=== PATIENT | female | born 1945 | race Caucasian/White ===

== ENCOUNTER 2024-10-27 10:47 | Emergency (ER) | payer BC, OTHER ==
[~2024-10-27] VITALS: Ht 160 cm; Wt 58.1 kg
[2024-10-27] MEDS ORDERED: LOSA25TA27 PO (11:04)
[2024-10-27] MEDS ORDERED: LOSA50TA39 PO (11:04)
[2024-10-27] MEDS ORDERED: MULT-1045 PO (11:08)
[2024-10-27] MEDS ORDERED: CHOL10005 PO (11:08)
[2024-10-27] MEDS ORDERED: MAGN400C PO (11:08)
[2024-10-27] MEDS: LIDOCAINE HCL 1% 20 ML VIAL IJ ONE (12:07)
[2024-10-27] MEDS ORDERED: TDAP DIPH,PERTUSS,TET VAC/PF 0.5 ML DISP.SYRIN IM ONE (12:08)
[2024-10-27] MEDS ORDERED: IBUP-1955 PO (12:08)
[2024-10-27] MEDS ORDERED: NEOMY/BACITRA/POLYMYXIN B OINT UD PACKET TP ONE (12:08)
[2024-10-27] MEDS: TDAP DIPH,PERTUSS,TET VAC/PF 0.5 ML DISP.SYRIN IM ONE (12:19)
[2024-10-27] MEDS: NEOMY/BACITRA/POLYMYXIN B OINT UD PACKET TP ONE (12:19)
[2024-10-27 12:59] VITALS: BP 150/89; TEMP 97.8; O2SAT 96
== END 2024-10-27 12:43 | disposition home or self-care (01) ==
LOC: ER 10:47
DX: S01.01XA Laceration without foreign body of scalp, initial encounter (principal); S30.0XXA Contusion of lower back and pelvis, initial encounter; I10 Essential (primary) hypertension; M17.11 Unilateral primary osteoarthritis, right knee; R51.9 Headache, unspecified; Z79.899 Other long term (current) drug therapy; Z88.5 Allergy status to narcotic agent; Z60.2 Problems related to living alone; W10.9XXA Fall (on) (from) unspecified stairs and steps, initial encounter; Y93.89 Activity, other specified; Y92.89 Other specified places as the place of occurrence of the external cause; Y99.8 Other external cause status
CPT/HCPCS: 70450; 90715; A4606; A4663